=== PATIENT | female | born 1995 | race Two or more races ===

== ENCOUNTER 2021-07-28 01:46 | Emergency (ER) | payer MEDICAID, OTHER ==
[~2021-07-28] VITALS: Ht 160 cm; Wt 68.0 kg
[2021-07-28 03:03] LABS: Urine Bacteria FEW /hpf (None Seen); Urine Blood Negative /uL (Negative); Urine Specific Gravity 1.005 (1.001-1.035); Urine WBC 14 /hpf (0 - 5)
[2021-07-28] MEDS ORDERED: CIPR-173 PO (08:01)
[2021-07-28] MEDS ORDERED: PHEN200T16 PO (08:01)
[2021-07-28 08:32] VITALS: BP 123/91
== END 2021-07-28 08:37 | disposition home or self-care (01) ==
LOC: ER 01:46
DX: N39.0 Urinary tract infection, site not specified (principal)
CPT/HCPCS: 81001; 81025

== ENCOUNTER 2022-02-07 14:22 | Emergency (ER) | payer OTHER ==
[~2022-02-07] VITALS: Ht 144.8 cm; Wt 63.6 kg
[~2022-02-07 14:22] MED LIST: CIPR-173 PO; PHEN200T16 PO
[2022-02-07] MEDS ORDERED: TETANUS-DIPTH-ACEL PERTUSSIS 0.5ML SYR Tdap IM ONE (14:45)
[2022-02-07 16:15] LABS: Amphetamine Screen, Urine NEGATIVE (NEGATIVE); Barbiturate Scree,Urine NEGATIVE (NEGATIVE); Benzodiazephine Screen, Urine NEGATIVE (NEGATIVE); Cannabinoid Screen, Urine NEGATIVE (NEGATIVE); Cocaine Screen, Urine NEGATIVE (NEGATIVE); Opiate Scree,Urine NEGATIVE (NEGATIVE); Phencyclidine Screen, Urine NEGATIVE (NEGATIVE)
[2022-02-07] MEDS ORDERED: IBUP400T22 PO (16:34)
[2022-02-07] MEDS ORDERED: IBUPROFEN 600 MG TAB PO ONE (18:45)
[2022-02-07 20:00] VITALS: BP 123/78
== END 2022-02-07 20:20 | disposition home or self-care (01) ==
LOC: EDBD 14:22 → ER 14:22
DX: S40.012A Contusion of left shoulder, initial encounter (principal); S09.90XA Unspecified injury of head, initial encounter; T14.8XXA Other injury of unspecified body region, initial encounter; Z79.1 Long term (current) use of non-steroidal anti-inflammatories (NSAID); Z79.899 Other long term (current) drug therapy; V49.9XXA Car occupant (driver) (passenger) injured in unspecified traffic accident, initial encounter; Y93.89 Activity, other specified; Y92.410 Unspecified street and highway as the place of occurrence of the external cause; Y99.8 Other external cause status
CPT/HCPCS: 36415; 70450; 72125; 73030; 80307; 80320